=== PATIENT | female | born 1945 | race Two or more races ===

== ENCOUNTER 2020-12-12 05:40 | Day surgery (SDC) | payer OTHER ==
[~2020-12-12 05:40] MED LIST: ATORVASTATIN CA10 MG PO; COZAAR25 MG PO; GLIMEPIRIDE2 M1 PO; NEURONTIN600 M1 PO; PRILOSEC OTC20 MG PO; SYNTHROID100 MCG PO; XIGDUO XR 5 MG1 EAC1 PO
[2020-12-12] MEDS ORDERED: MACROBID 100 M100 MG PO (11:14)
[2020-12-12] MEDS ORDERED: ULTRACET PO (11:15)
== END 2020-12-12 16:20 | disposition home or self-care (01) ==
LOC: CIR.AMB 05:40
PROVIDERS: ATTEND Obstetrics & Gynecology Gynecology
DX: N81.3 Complete uterovaginal prolapse (principal); Z20.822 Contact with and (suspected) exposure to COVID-19